=== PATIENT | male | born 1945 | race Hispanic/Latino ===

== ENCOUNTER 2018-07-24 15:46 | Inpatient (IN) | payer OTHER ==
[~2018-07-24] VITALS: Ht 180.3 cm; Wt 81.6 kg
[2018-07-24 16:34] LABS: EOSINOPHILS % (AUTO) 2.9 % (0.0-8.0); HEMATOCRIT 43.5 % (42-54); LYMPHOCYTES % (AUTO) 43.4 % (21.0-51.0); MEAN CORPUSCULAR HEMOGLOBIN 31.2 pg (27.0-33.0); MEAN CORPUSCULAR HGB CONC 33.3 g/dL (32.0-36.0); MEAN CORPUSCULAR VOLUME 93.7 fL (79-99); MONOCYTES % (AUTO) 10.9 % (3.0-13.0); NEUTROPHILS % (AUTO) 41.8 % (40.0-77.0); PLATELET COUNT (AUTO) 219 K/uL (130-400); RED BLOOD CELL COUNT(AUTO) 4.64 MIL/uL (4.50-6.20); RED CELL DISTRIBUTION WIDTH 13.2 % (11.0-15.5); WHITE BLOOD COUNT (AUTO) 5.4 K/uL (4.8-10.8)
[2018-07-24 16:44] LABS: INR 0.96 (0.85-1.15); PROTHROMBIN TIME 10.1 SEC (9.6-11.6)
[2018-07-24 16:48] LABS: CREATININE 1.3 mg/dL (0.5-1.5)
[2018-07-24 16:59] LABS: ALBUMIN 3.7 g/dL (3.5-5.0); BILIRUBIN,TOTAL 0.4 mg/dL (0.2-1.0); MAGNESIUM 2.1 mg/dL (1.80-2.40); TOTAL PROTEIN, SERUM 7.9 g/dL (6.0-8.3)
[2018-07-24] MEDS ORDERED: SODIUM CHLORIDE 0.9% 1000ML 1,000 ML IV ONE ×2 (17:12→18:43)
[2018-07-24 19:42] LABS: APPEARANCE,URINE Clear (CLEAR); BILIRUBIN,URINE Negative (NEGATIVE); COLOR,URINE Yellow (YELLOW); GLUCOSE, URINE (UA) Negative (NEGATIVE); KETONES,URINE Negative (NEGATIVE); LEUKOCYTE ESTERASE ,URINE Negative (NEGATIVE); NITRATE,URINE Negative (NEGATIVE); OCCULT BLOOD,URINE Negative (NEGATIVE); PROTEIN,URINE Negative (NEGATIVE); UROBILINOGEN,URINE 0.2 mg/dL (0.2-1.0)
[2018-07-24 19:50] LABS: AMPHET/METH SCREEN,URINE POSITIVE (NEGATIVE); BARBITURATE SCREEN, URINE NEGATIVE (NEGATIVE); BENZODIAZEPINES SCREEN,URINE NEGATIVE (NEGATIVE); CANNABINOID SCREEN,URINE POSITIVE (NEGATIVE); COCAINE SCREEN,URINE POSITIVE (NEGATIVE); OPIATE SCREEN,URINE NEGATIVE (NEGATIVE); PHENCYCLIDINE SCREEN,URINE NEGATIVE (NEGATIVE)
[2018-07-24] MEDS ORDERED: DiphenhydrAMINE HCL 50 MG/ML VIAL ONE (19:56)
[2018-07-24] MEDS ORDERED: ACETAMINOPHEN 325 MG TAB PO PRN (22:15)
[2018-07-24] MEDS ORDERED: ONDANSETRON HCL 4 MG/2 ML VIAL IV PRN (22:15)
[2018-07-25] MEDS ORDERED: SODIUM CHLORIDE 0.9% 1000ML 1,000 ML IV ONE (00:08)
[2018-07-25] MEDS: SODIUM CHLORIDE 0.9% 1000ML 1,000 ML IV SCH ×4 (06:13→22:41)
[2018-07-25 06:56] LABS: ALBUMIN 3.2 g/dL (3.5-5.0); BILIRUBIN,TOTAL 0.4 mg/dL (0.2-1.0); CREATININE 1.1 mg/dL (0.5-1.5); POTASSIUM 4.1 mmol/L (3.5-5.1); TOTAL PROTEIN, SERUM 6.9 g/dL (6.0-8.3)
[2018-07-25 07:13] LABS: HEMATOCRIT 40.2 % (42-54); MEAN CORPUSCULAR HEMOGLOBIN 32.4 pg (27.0-33.0); MEAN CORPUSCULAR HGB CONC 34.1 g/dL (32.0-36.0); PLATELET COUNT (AUTO) 227 K/uL (130-400); RED BLOOD CELL COUNT(AUTO) 4.23 MIL/uL (4.50-6.20); RED CELL DISTRIBUTION WIDTH 13.4 % (11.0-15.5)
[2018-07-25] MEDS ORDERED: METOPROLOL TARTRATE 25 MG TAB PO SCH (09:00)
[2018-07-25 09:22] VITALS: BP 128/75
[2018-07-25] MEDS: AMLODIPINE BESYLATE 5 MG TAB PO SCH (10:52)
[2018-07-25] MEDS: FAMOTIDINE/PF 20 MG/2 ML VIAL IV SCH ×2 (10:52→20:17)
[2018-07-25] MEDS: ENOXAPARIN SODIUM 40 MG/0.4 ML SYRINGE SQ SCH (10:53)
[2018-07-25 11:11] VITALS: BP 125/81
[2018-07-25] MEDS ORDERED: PHARMACY COMMUNICATION MISC SCH (11:45)
[2018-07-25] MEDS: FOLIC ACID 1 MG TABLET PO SCH ×2 (12:40→20:17)
[2018-07-25] MEDS: LEVETIRACETAM 250 MG TABLET PO SCH ×2 (12:41→20:17)
[2018-07-25] MEDS: CHLORDIAZEPOXIDE HCL 25 MG CAP PO SCH ×2 (12:41→20:17)
[2018-07-25] MEDS: THIAMINE HCL 100 MG TABLET PO SCH (12:41)
[2018-07-25 16:27] VITALS: BP 120/68
[2018-07-25 19:30] VITALS: BP 138/71
[2018-07-25] MEDS ORDERED: LEVETIRACETAM 250 MG TABLET PO SCH (21:00)
[2018-07-25] MEDS ORDERED: FOLIC ACID 1 MG TABLET PO SCH (21:00)
[2018-07-25 23:40] VITALS: BP 110/72
[2018-07-26 03:15] VITALS: BP 122/76
[2018-07-26] MEDS: CHLORDIAZEPOXIDE HCL 25 MG CAP PO SCH (03:49)
[2018-07-26] MEDS: SODIUM CHLORIDE 0.9% 1000ML 1,000 ML IV SCH (06:13)
[2018-07-26 07:31] VITALS: BP 134/84
[2018-07-26] MEDS ORDERED: THIAMINE HCL 100 MG TABLET PO SCH (09:00)
[2018-07-26] MEDS: FAMOTIDINE/PF 20 MG/2 ML VIAL IV SCH (09:59)
[2018-07-26] MEDS: FOLIC ACID 1 MG TABLET PO SCH (10:00)
[2018-07-26] MEDS: ENOXAPARIN SODIUM 40 MG/0.4 ML SYRINGE SQ SCH (10:00)
[2018-07-26] MEDS: LEVETIRACETAM 250 MG TABLET PO SCH (10:00)
[2018-07-26] MEDS: THIAMINE HCL 100 MG TABLET PO SCH (10:00)
[2018-07-26] MEDS: AMLODIPINE BESYLATE 5 MG TAB PO SCH (10:01)
[2018-07-26 11:22] VITALS: BP 136/64
[2018-07-26] MEDS ORDERED: CHLORDIAZEPOXIDE HCL 25 MG CAP PO SCH (12:00)
[2018-07-26] MEDS ORDERED: THIAM100TB PO (14:34)
[2018-07-26] MEDS ORDERED: AMLO5TAB4 PO (14:34)
[2018-07-26] MEDS ORDERED: LEVE250T PO (14:34)
[2018-07-26] MEDS ORDERED: FOLI1TAB15 PO (14:34)
== END 2018-07-26 16:54 | disposition home or self-care (01) | DRG 92 ==
LOC: EDH 15:46 → EDHIP 20:49 → 4CH 07-25 08:30
PROVIDERS: ADMIT Internal Medicine; ATTEND Internal Medicine
DX: G25.1 Drug-induced tremor (principal); F14.20 Cocaine dependence, uncomplicated; G25.3 Myoclonus; F12.90 Cannabis use, unspecified, uncomplicated; E78.5 Hyperlipidemia, unspecified; E78.00 Pure hypercholesterolemia, unspecified; I10 Essential (primary) hypertension; G47.00 Insomnia, unspecified; T43.625A Adverse effect of amphetamines, initial encounter; Z87.891 Personal history of nicotine dependence; Y92.89 Other specified places as the place of occurrence of the external cause; Z91.19 Patient's noncompliance with other medical treatment and regimen
CPT/HCPCS: 36415; 70450; 71045; 80053; 80061; 80305; 81003; 82607; 83735; 84443; 84484; 85025; 85027; 85610; 85730; 93005; J1200; J1650; J3490; J7030

== ENCOUNTER 2019-04-10 13:42 | Emergency (ER) | payer OTHER ==
[~2019-04-10 13:42] MED LIST: AMLO5TAB4 PO; FOLI1TAB15 PO; LEVE250T PO; THIAM100TB PO
[2019-04-10] MEDS ORDERED: ONDANSETRON HCL 4 MG/2 ML VIAL ONE (14:03)
[2019-04-10] MEDS ORDERED: MORPHINE SULFATE 2 MG/ML 1ML SYG ONE ×2 (14:04→14:42)
[2019-04-10 14:17] LABS: BASOPHILS % (AUTO) 1.1 % (0.0-5.0); HEMATOCRIT 43.1 % (42-54); LYMPHOCYTES % (AUTO) 35.1 % (21.0-51.0); MEAN CORPUSCULAR HEMOGLOBIN 32.2 pg (27.0-33.0); MEAN CORPUSCULAR HGB CONC 34.2 g/dL (32.0-36.0); MEAN CORPUSCULAR VOLUME 94.2 fL (79-99); MONOCYTES % (AUTO) 8.1 % (3.0-13.0); NEUTROPHILS % (AUTO) 52.7 % (40.0-77.0); PLATELET COUNT (AUTO) 233 K/uL (130-400); RED BLOOD CELL COUNT(AUTO) 4.57 MIL/uL (4.50-6.20); RED CELL DISTRIBUTION WIDTH 13.4 % (11.0-15.5); WHITE BLOOD COUNT (AUTO) 4.6 K/uL (4.8-10.8)
[2019-04-10 14:24] LABS: CREATININE 1.3 mg/dL (0.5-1.5); POTASSIUM 3.6 mmol/L (3.5-5.1)
[2019-04-10 14:28] LABS: INR 0.96 (0.85-1.15); PARTIAL THROMBOPLASTIN TIME 41.5 SEC (26.3-35.5); PROTHROMBIN TIME 10.1 SEC (9.6-11.6)
[2019-04-10 14:31] LABS: ALBUMIN 3.7 g/dL (3.5-5.0); BILIRUBIN,DIRECT 0.2 mg/dL (0.0-0.3); BILIRUBIN,TOTAL 0.6 mg/dL (0.2-1.0)
[2019-04-10 14:44] LABS: B-TYPE NATRIURETIC PEPTIDE 26 pg/mL (0-100)
[2019-04-10] MEDS ORDERED: BUPIVACAINE/PF 0.5% 30ML VIAL ONE (16:26)
[2019-04-10] MEDS ORDERED: CEFTRIAXONE SODIUM 1 GM ONE (16:27)
== END 2019-04-10 17:23 | disposition home or self-care (01) ==
LOC: EDH 13:42
DX: S82.844A Nondisplaced bimalleolar fracture of right lower leg, initial encounter for closed fracture (principal); E78.5 Hyperlipidemia, unspecified; I10 Essential (primary) hypertension; R79.1 Abnormal coagulation profile; Z87.891 Personal history of nicotine dependence; X50.1XXA Overexertion from prolonged static or awkward postures, initial encounter; Y93.89 Activity, other specified; Y92.098 Other place in other non-institutional residence as the place of occurrence of the external cause; Y99.8 Other external cause status
CPT/HCPCS: 20605; 36415; 73590; 73610; 73630; 80048; 80076; 82550; 83690; 83880; 84484; 85025; 85610; 85730; 87040 ×2; 93005; 96374; 96375; 99285; J0696; J2405; J3490; 20610; 29515

== ENCOUNTER 2022-07-07 16:13 | Inpatient (IN) | payer OTHER ==
[~2022-07-07] VITALS: Ht 177.8 cm; Wt 72.6 kg
[2022-07-07 16:45] LABS: BASOPHILS % (AUTO) 0.4 % (0.0-5.0); EOSINOPHILS % (AUTO) 2.3 % (0.0-8.0); MEAN CORPUSCULAR HEMOGLOBIN 31.4 pg (27.0-33.0); MEAN CORPUSCULAR HGB CONC 33.9 g/dL (32.0-36.0); MEAN CORPUSCULAR VOLUME 92.8 fL (79-99); MONOCYTES % (AUTO) 11.3 % (3.0-13.0); NEUTROPHILS % (AUTO) 43.5 % (40.0-77.0); PLATELET COUNT (AUTO) 344 K/uL (130-400); RED BLOOD CELL COUNT(AUTO) 4.42 MIL/uL (4.50-6.20); RED CELL DISTRIBUTION WIDTH 12.7 % (11.0-15.5); WHITE BLOOD COUNT (AUTO) 5.6 K/uL (4.8-10.8)
[2022-07-07 16:55] LABS: INR 0.97 (0.85-1.15); PROTHROMBIN TIME 10.6 SEC (9.6-11.6)
[2022-07-07 16:56] LABS: PARTIAL THROMBOPLASTIN TIME 32.2 SEC (26.3-35.5)
[2022-07-07 16:58] LABS: CREATININE 1.7 mg/dL (0.5-1.5); POTASSIUM 3.9 mmol/L (3.5-5.1)
[2022-07-07 17:04] LABS: ALBUMIN 3.8 g/dL (3.5-5.0); TOTAL PROTEIN, SERUM 8.4 g/dL (6.0-8.3)
[2022-07-07 18:43] LABS: APPEARANCE,URINE CLOUDY (CLEAR); BILIRUBIN,URINE NEGATIVE (NEGATIVE); COLOR,URINE YELLOW (YELLOW); GLUCOSE, URINE (UA) NEGATIVE (NEGATIVE); KETONES,URINE NEGATIVE (NEGATIVE); LEUKOCYTE ESTERASE ,URINE NEGATIVE Leu/uL (NEGATIVE); NITRATE,URINE NEGATIVE (NEGATIVE); OCCULT BLOOD,URINE NEGATIVE (NEGATIVE); PH,URINE 5.5 (5.0-8.0); PROTEIN,URINE 30 mg/dL (NEGATIVE)
[2022-07-07 18:50] LABS: BACTERIA,URINE RARE /HPF (None Seen); MUCUS,URINE MOD LPF (None Seen); SQUAMOUS EPITHELIAL CELL,UR RARE /HPF (0-2)
[2022-07-07] MEDS ORDERED: CEFTRIAXONE 1G VIAL IVP ONE (19:30)
[2022-07-07] MEDS ORDERED: ONDANSETRON 4MG INJ IV PRN (20:30)
[2022-07-07] MEDS ORDERED: HYDROCODONE/ACETAMINOPHEN 5/325 MG TAB PO PRN (20:30)
[2022-07-07] MEDS ORDERED: VANCOMYCIN PROTOCOL PER PHARMACY IV SCH (20:30)
[2022-07-07] MEDS ORDERED: NITROGLYCERIN 0.4 MG SL TAB SL PRN (20:30)
[2022-07-07] MEDS ORDERED: ACETAMINOPHEN 325 MG TAB PO PRN ×2 (20:30)
[2022-07-07] MEDS: FAMOTIDINE 20MG TAB PO SCH (20:56)
[2022-07-07] MEDS: HYDROCODONE/ACETAMINOPHEN 5/325 MG TAB PO PRN (20:56)
[2022-07-07] MEDS: HEPARIN 5,000 UNIT VIAL SQ SCH (20:56)
[2022-07-07] MEDS ORDERED: VANCOMYCIN 1.5 GM/250 ML BAG 250 ML IV ONE (21:00)
[2022-07-07] MEDS ORDERED: 0.9%NACL 1000ML 1,000 ML IV SCH (21:30)
[2022-07-07] MEDS: 0.9%NACL 1000ML 1,000 ML IV SCH ×2 (21:30→23:38)
[2022-07-07 22:09] LABS: AMPHET/METH SCREEN,URINE POSITIVE (NEGATIVE); BARBITURATE SCREEN, URINE NEGATIVE (NEGATIVE); BENZODIAZEPINES SCREEN,URINE NEGATIVE (NEGATIVE); CANNABINOID SCREEN,URINE NEGATIVE (NEGATIVE); COCAINE SCREEN,URINE POSITIVE (NEGATIVE); PHENCYCLIDINE SCREEN,URINE POSITIVE (NEGATIVE)
[2022-07-07 22:20] VITALS: BP 156/68
[2022-07-08 03:57] VITALS: BP 148/72
[2022-07-08 05:12] LABS: BASOPHILS % (AUTO) 0.6 % (0.0-5.0); EOSINOPHILS % (AUTO) 3.6 % (0.0-8.0); HEMATOCRIT 35.7 % (42-54); LYMPHOCYTES % (AUTO) 55.2 % (21.0-51.0); MEAN CORPUSCULAR HEMOGLOBIN 31.2 pg (27.0-33.0); MEAN CORPUSCULAR HGB CONC 33.3 g/dL (32.0-36.0); MEAN CORPUSCULAR VOLUME 93.7 fL (79-99); MONOCYTES % (AUTO) 11.3 % (3.0-13.0); NEUTROPHILS % (AUTO) 28.9 % (40.0-77.0); PLATELET COUNT (AUTO) 285 K/uL (130-400); RED BLOOD CELL COUNT(AUTO) 3.81 MIL/uL (4.50-6.20); RED CELL DISTRIBUTION WIDTH 12.7 % (11.0-15.5); WHITE BLOOD COUNT (AUTO) 4.7 K/uL (4.8-10.8)
[2022-07-08 05:40] LABS: ALBUMIN 3.1 g/dL (3.5-5.0); CREATININE 1.2 mg/dL (0.5-1.5); MAGNESIUM 1.9 mg/dL (1.80-2.40); POTASSIUM 3.5 mmol/L (3.5-5.1)
[2022-07-08] MEDS: 0.9%NACL 1000ML 1,000 ML IV SCH ×2 (06:31→18:13)
[2022-07-08 07:14] VITALS: BP 160/76
[2022-07-08] MEDS ORDERED: VANCOMYCIN 1G/250ML KIT 250 ML IV SCH (09:00)
[2022-07-08] MEDS ORDERED: CEFTRIAXONE 1G VIAL IVP SCH (09:00)
[2022-07-08] MEDS ORDERED: 0.9% NACL 250ML 250 ML ONE (09:39)
[2022-07-08] MEDS: HEPARIN 5,000 UNIT VIAL SQ SCH ×3 (09:46→20:57)
[2022-07-08 12:14] VITALS: BP 156/67
[2022-07-08 16:12] VITALS: BP 139/67
[2022-07-08] MEDS: CEFEPIME HCL 2 GM VIAL IVP SCH (18:48)
[2022-07-08 20:03] VITALS: BP 127/70
[2022-07-08] MEDS: FAMOTIDINE 20MG TAB PO SCH (20:52)
[2022-07-08 23:26] VITALS: BP 130/66
[2022-07-09] MEDS: CEFEPIME HCL 2 GM VIAL IVP SCH ×2 (02:15→10:07)
[2022-07-09] MEDS: 0.9%NACL 1000ML 1,000 ML IV SCH ×2 (02:48→13:30)
[2022-07-09] MEDS: HYDROCODONE/ACETAMINOPHEN 5/325 MG TAB PO PRN (02:48)
[2022-07-09 03:47] VITALS: BP 162/84
[2022-07-09 05:46] LABS: BASOPHILS % (AUTO) 0.4 % (0.0-5.0); EOSINOPHILS % (AUTO) 3.4 % (0.0-8.0); HEMATOCRIT 35.6 % (42-54); LYMPHOCYTES % (AUTO) 44.2 % (21.0-51.0); MEAN CORPUSCULAR HEMOGLOBIN 31.3 pg (27.0-33.0); MEAN CORPUSCULAR HGB CONC 34.3 g/dL (32.0-36.0); MEAN CORPUSCULAR VOLUME 91.3 fL (79-99); MONOCYTES % (AUTO) 11.7 % (3.0-13.0); NEUTROPHILS % (AUTO) 40.1 % (40.0-77.0); PLATELET COUNT (AUTO) 281 K/uL (130-400); RED CELL DISTRIBUTION WIDTH 12.6 % (11.0-15.5); WHITE BLOOD COUNT (AUTO) 4.5 K/uL (4.8-10.8)
[2022-07-09 06:18] LABS: ALBUMIN 3.1 g/dL (3.5-5.0); MAGNESIUM 1.7 mg/dL (1.80-2.40); POTASSIUM 3.3 mmol/L (3.5-5.1); TOTAL PROTEIN, SERUM 7.1 g/dL (6.0-8.3)
[2022-07-09 08:00] VITALS: BP 172/81
[2022-07-09] MEDS: HEPARIN 5,000 UNIT VIAL SQ SCH ×2 (10:06→16:00)
[2022-07-09 12:00] VITALS: BP 155/82
[2022-07-09] MEDS ORDERED: KCL 20 MEQ ERTAB PO PRN (13:30)
[2022-07-09] MEDS ORDERED: POTASSIUM CHLORIDE 20MEQ/100ML 100 ML IV PRN (13:30)
[2022-07-09] MEDS ORDERED: MAGNESIUM 2GM PREMIX 50ML 50 ML IV SCH (13:30)
[2022-07-09] MEDS ORDERED: LIDOCAINE HCL-MPF 1% 2ML VIAL IV PRN (13:30)
[2022-07-09] MEDS ORDERED: POTASSIUM CHLORIDE 10% ELIXIR 20 MEQ/15 ML UDCUP PO PRN (13:30)
[2022-07-09 15:24] VITALS: BP 127/82
[2022-07-09] MEDS ORDERED: VANCOMYCIN 1G/250ML KIT 250 ML IV SCH (21:00)
== END 2022-07-09 18:00 | DRG 863 ==
LOC: EDBD 16:13 → EDH 16:13 → EDHIP 20:08 → 3AH 21:29
PROVIDERS: ADMIT Hospitalist; ATTEND Hospitalist
DX: T81.41XA Infection following a procedure, superficial incisional surgical site, initial encounter (principal); N17.9 Acute kidney failure, unspecified; E87.1 Hypo-osmolality and hyponatremia; L03.115 Cellulitis of right lower limb; Z20.822 Contact with and (suspected) exposure to COVID-19; E78.00 Pure hypercholesterolemia, unspecified; I12.9 Hypertensive chronic kidney disease with stage 1 through stage 4 chronic kidney disease, or unspecified chronic kidney disease; N18.31 Chronic kidney disease, stage 3a; F43.10 Post-traumatic stress disorder, unspecified; G40.909 Epilepsy, unspecified, not intractable, without status epilepticus; I73.9 Peripheral vascular disease, unspecified; L97.519 Non-pressure chronic ulcer of other part of right foot with unspecified severity; Z87.891 Personal history of nicotine dependence
CPT/HCPCS: 36415; 73630; 80053; 80202; 80305; 81001; 82550; 83605; 83735; 84145; 84484; 85025; 85610; 85651; 85730; 86140; 87040; 87070; 87076; 87077; 87088; 87186; 87635; 87641; 93005; 97039; G0378; J0692; J0696; J1644; J3370; J3475; J7030; J7050

== ENCOUNTER 2023-04-01 06:05 | Emergency (ER) | payer OTHER ==
[~2023-04-01] VITALS: Ht 175.3 cm; Wt 75.7 kg
[2023-04-01] MEDS ORDERED: LACTATED RINGERS 1000ML 1,000 ML IV SCH (06:30)
[2023-04-01 07:35] LABS: BASOPHILS % (AUTO) 0.4 % (0.0-5.0); HEMATOCRIT 33.4 % (42-54); LYMPHOCYTES % (AUTO) 37.5 % (21.0-51.0); MEAN CORPUSCULAR HEMOGLOBIN 30.4 pg (27.0-33.0); MEAN CORPUSCULAR HGB CONC 31.7 g/dL (32.0-36.0); MEAN CORPUSCULAR VOLUME 95.7 fL (79-99); MONOCYTES % (AUTO) 12.8 % (3.0-13.0); NEUTROPHILS % (AUTO) 45.1 % (40.0-77.0); PLATELET COUNT (AUTO) 251 K/uL (130-400); RED BLOOD CELL COUNT(AUTO) 3.49 MIL/uL (4.50-6.20); RED CELL DISTRIBUTION WIDTH 13.4 % (11.0-15.5); WHITE BLOOD COUNT (AUTO) 4.5 K/uL (4.8-10.8)
[2023-04-01 07:58] LABS: ALBUMIN 3.4 g/dL (3.5-5.0); CREATININE 1.2 mg/dL (0.5-1.5); POTASSIUM 3.7 mmol/L (3.5-5.1); TOTAL PROTEIN, SERUM 7.6 g/dL (6.0-8.3)
[2023-04-01 08:22] LABS: APPEARANCE,URINE CLOUDY (CLEAR); BILIRUBIN,URINE NEGATIVE (NEGATIVE); COLOR,URINE RED (YELLOW); GLUCOSE, URINE (UA) NEGATIVE (NEGATIVE); KETONES,URINE 5 mg/dL (NEGATIVE); LEUKOCYTE ESTERASE ,URINE SMALL Leu/uL (NEGATIVE); NITRATE,URINE POSITIVE (NEGATIVE); OCCULT BLOOD,URINE LARGE (NEGATIVE); PROTEIN,URINE >=300 mg/dL (NEGATIVE); UROBILINOGEN,URINE >=8.0 mg/dL (0.2-1.0)
[2023-04-01 08:40] LABS: RBC,URINE TNTC /HPF (0-1)
[2023-04-01 08:46] LABS: BACTERIA,URINE Few /HPF (None Seen)
[2023-04-01] MEDS ORDERED: SULF1TAB42 PO (09:07)
[2023-04-01] MEDS ORDERED: CEFTRIAXONE 1G VIAL ONE (09:26)
[2023-04-01] MEDS ORDERED: CEFTRIAXONE 1G VIAL IVPB SCH (09:30)
[2023-04-01 10:32] VITALS: BP 145/95
[2023-04-06] MEDS ORDERED: QUET25TA PO (09:00)
[2023-04-06] MEDS ORDERED: TAMS-1 PO (09:00)
== END 2023-04-01 11:33 | disposition home or self-care (01) ==
LOC: EDH 06:05
DX: N39.0 Urinary tract infection, site not specified (principal); S09.90XA Unspecified injury of head, initial encounter; Z79.01 Long term (current) use of anticoagulants; W01.10XA Fall on same level from slipping, tripping and stumbling with subsequent striking against unspecified object, initial encounter; Y93.89 Activity, other specified; Y92.89 Other specified places as the place of occurrence of the external cause; Y99.8 Other external cause status
CPT/HCPCS: 99285; 96365; 70450; 80053; 83690; 85025; 87088; 81001; 36415; J0696

== ENCOUNTER 2023-04-02 17:31 | Emergency (ER) | payer OTHER ==
[~2023-04-02] VITALS: Ht 167.6 cm; Wt 86.2 kg
[~2023-04-02 17:31] MED LIST changes: -AMLO5TAB4 PO; -FOLI1TAB15 PO; -LEVE250T PO; +SULF1TAB42 PO; -THIAM100TB PO
[2023-04-02 18:38] VITALS: BP 147/82
[2023-04-05] MEDS ORDERED: ROCURONIUM 10MG/1ML SYR 10 MG/ML ML ONE (14:12)
[2023-04-05] MEDS ORDERED: EPHEDRINE SULFATE 50 MG/ML AMPULE ONE (14:26)
[2023-04-06] MEDS ORDERED: TAMS-1 PO (09:00)
[2023-04-06] MEDS ORDERED: QUET25TA PO (09:00)
== END 2023-04-02 19:29 | disposition left against medical advice (07) ==
LOC: EDH 17:31
DX: T83.098A Other mechanical complication of other urinary catheter, initial encounter (principal); E78.00 Pure hypercholesterolemia, unspecified; I10 Essential (primary) hypertension; Z86.73 Personal history of transient ischemic attack (TIA), and cerebral infarction without residual deficits; Y84.9 Medical procedure, unspecified as the cause of abnormal reaction of the patient, or of later complication, without mention of misadventure at the time of the procedure; Y92.89 Other specified places as the place of occurrence of the external cause
CPT/HCPCS: 99281